=== PATIENT | female | born 1995 ===

== ENCOUNTER 2024-09-18 03:04 | Inpatient (IN) ==
[2024-09-18] MEDS ORDERED: LIDOCAINE 1% LOCAL 20 ML VIAL INFIL PRN (04:00)
[2024-09-18] MEDS ORDERED: OXYTOCIN 30 UNITS/NSS 30 UNITS/500 ML BAG IV PRN (04:00)
[2024-09-18] MEDS ORDERED: BUTORPHANOL TARTRATE 2 MG/ML VIAL IV PRN (04:06)
[2024-09-18 04:43] LABS: Creatinine Urine Random 84.1 mg/dl; Protein Creatinine Ratio Urine 0.6 (0-0.2); Total Protein Urine Random 47.8 mg/dl (0-11.9)
[2024-09-18] MEDS: SODIUM CHLORIDE 0.9% 1,000 ML IV SCH (04:45)
[2024-09-18 04:48] LABS: Hematocrit (blood only) 34.3 % (37.0-47.0); Hemoglobin 12.3 g/dl (12.0-16.0); Mean Corpuscular Hemoglobin 31.6 pg (25.0-34.0); Mean Corpuscular Hgb Conc 35.9 g/dL (32.0-36.0); Mean Corpuscular Volume 88.2 fL (80.0-100.0); Mean Platelet Volume 12.3 fL (9.4-12.4); Platelet Count 100 K/uL (130-400); RDW Coefficient of Variation 12.4 % (11.5-14.5); RDW Standard Deviation 39.7 fL (36.4-46.3); Red Blood Count 3.89 M/uL (4.20-5.40); White Blood Count 8.49 K/ul (4.8-10.8)
[2024-09-18 04:56] LABS: Albumin Globulin Ratio 1.5 (0.9-2); Albumin Level 3.8 gm/dl (3.4-5.0); Bilirubin,Total 0.4 mg/dl (0.2-1.0); Calcium 9.6 mg/dl (8.6-10.3); Creatinine Clr Calc Pharmacy 88.4 ml/min; Globulin 2.6 gm/dl (2.5-4.0); Potassium 3.8 mmol/L (3.5-5.1); Total Protein 6.4 gm/dl (6.0-8.3)
--- NOTE | 2024-09-18 05:46 | History & Physical Report ---
Date of Service September 18, 2024 Assessment & Plan (1) Post term over 40 weeks: (2) Preeclampsia: (3) PROM with onset of labor within 24 hours of rupture: Plan admit, iv, reviewed labs. plts noted. fhts currently categ 1. spontaneous labor pattern, may need to consider pitocin augmentation however for now cx changing despite at times irregular pattern. watch bps. if severe range will trt and plan mag. for now only plts low, cont to watch. Admission and Anticipated Discharge Date Admission Date: September 18, 2024 History of Present Illness Chief Complaint: leaking fluid, ctx. Primary Care Provider: VANESSA Alcantara 28yo at 40+wks ega presents to LD with cc of leaking fluid and contractions. Pt called early am on 09/18 noting ? pink fluid with some irregular ctx. Put pad on and recalled after one hour and told to come in for evaluation due to pad being 75% saturated. At that time also with irregular ctx. On arrival here notably grossly ruptured. Contractions q2-4 and cx exam 2cm. BPs elevated x 2. No matta or visual change. No ruq pain. No swelling. +FM. No vb. Clear fluid-- of note pt states first started leaking at 1900 on 09/17. PNC uncomplicated. PNL rh pos, ri, gbs neg OBH: g1 GYNH: nl paps no stds. Allergies Allergy/AdvReac Type Severity Reaction Status Date / Time No Known Allergies Allergy Verified 09/12/24 14:11 Home Medications Medication Instructions Recorded Confirmed Type pediatric multivitamin no.7-folic tab PO 04/27/24 09/12/24 History acid 100 mcg chewable tablet (Flintstones Multi-Vitamins Gummies) calcium carbonate PO 05/31/24 09/12/24 History Breast Pump #1 ea 06/28/24 09/12/24 Rx Patient History Medical History (Updated 09/18/24 @ 05:51 by Nelli Gale MD, FACOG) Human papilloma virus Varicella vaccination Surgical History Status post surgery S/P wisdom tooth extraction Family History Grandmother (Paternal) Breast cancer Grandfather (Maternal) Heart disease Myocardial infarction Grandfather (Paternal) Heart disease Denies family history of Ovarian cancer Prostate cancer Colorectal cancer Social History Smoking Status: Never smoker Second Hand Exposure: No; Do You Dip or Chew Tobacco: No; Hx Alcohol Use: No Hx Substance Use: No Preferred Language: Occitan Communication Ability: Effective Visual Impairment: No Limitations Hearing Ability: Normal Spa Manager Required: No Beliefs That Will Affect Care: None marital status: marital status details: Ray Maurice (27) [phone] Current Living Situation: Spouse Current Living Situation Comment: lives with spouse, cat-spouse changing litter current occupational status: employed 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 Other Information That Helps Us Care for You: No Feels Safe at Home: Yes Safety Concerns: Feels Safe At This Time Childhood Exposure to Second-Hand Smoke: Yes Dental Care, Regularly: Yes Physical Activity Frequency: Daily Seatbelt Use: always Sunscreen Use: Yes Assistive Devices: None Review of Systems as per Subjective / HPI Physical Exam Constitutional: WD/WN, vitals as above Respiratory: normal respiratory effort, lungs clear to auscultation Cardiovascular: Rate/Rhythm: regular rate and regular rhythm Gastrointestinal (Abdomen): soft gravid nt efw 7-8# Musculoskeletal: no edema Neurologic: DTRs +3, no sustained clonus Psychiatric: A+Ox3, euthymic affect Genitourinary: Manual OB Exam: + cervical dilation 4 cm, + cervical effacement 100% and + station -1 OB Exam Monitor Tracing: + external FHT monitor used, + scalp electrode used (applied, not tracing well), + external uterine monitor used (q2-6), + intra-uterine pressure catheter used (placed), + category I (+scalp stim, +spont accels. ), + normal FHT variability, + early decelerations present and + variable decelerations (previously on tracing, has not repeated. ) Results & Data Vital Signs (Past 12 Hours) Vital Signs Temp Pulse Resp BP 09/18/24 04:53 81 135/85 09/18/24 03:52 71 166/85 H 09/18/24 03:35 63 150/91 H 09/18/24 03:30 98.1 F 20 Coding Level of Care Code None Diagnoses Post term over 40 weeks O48.0 Preeclampsia O14.90 PROM with onset of labor within 24 hours of rupture O42.00
[2024-09-18] MEDS: LIDOCAINE 2%/EPINEPHRINE 1:200,000 20 ML PF ONE (06:14)
[2024-09-18] MEDS: SODIUM CHLORIDE 0.9% PF INJ 10 ML VIAL ONE (06:14)
[2024-09-18] MEDS: BUPIVACAINE 0.25% PF 30 ML VIAL ONE (06:14)
[2024-09-18] MEDS: fentANYL 2 MCG/ML BUPIVacaine 0.125%-NSS 100ML BAG ONE (06:14)
[2024-09-18] MEDS ORDERED: NALBUPHINE HCL INJ 10 MG/ML AMP IV PRN ×2 (06:24→17:02)
[2024-09-18] MEDS ORDERED: fentaNYL citrate PF 100 MCG/2 ML VIAL EPI PRN (06:24)
[2024-09-18] MEDS ORDERED: ROPIVACAINE 0.5% PF 5 MG/ML 20 ML VIAL EPI PRN (06:24)
[2024-09-18] MEDS ORDERED: BUPIVACAINE 0.25% PF 30 ML VIAL EPI PRN (06:24)
[2024-09-18] MEDS ORDERED: PROMETHAZINE 6.25 MG/50.25 ML BAG IV PRN (06:24)
[2024-09-18] MEDS ORDERED: ePHEDrine sulfate 50 MG/ML AMP IV PRN ×2 (06:24→17:02)
[2024-09-18] MEDS ORDERED: NALOXONE HCL 0.4 MG/1 ML VIAL/CARP IV PRN ×2 (06:24→17:02)
[2024-09-18] MEDS ORDERED: NALOXONE HCL 1 MG in SODIUM CHLORIDE 0.9% 1,000 ML IV PRN ×2 (06:24→17:02)
[2024-09-18] MEDS ORDERED: LIDOCAINE 2% MPF LOCAL 5 ML VIAL EPI PRN (06:24)
[2024-09-18] MEDS ORDERED: SODIUM CHLORIDE 0.9% PF INJ 10 ML VIAL EPI PRN (06:24)
--- NOTE | 2024-09-18 06:24 | Anesthesiology Consultation ---
Date of Service September 18, 2024 Assessment & Plan Chart Review Chart Review: Patient NOT seen in Pre Admission Testing and Acceptable Risk for Labor Epidural Consults Requested none ASA ASA2 Proposed Anesthesia Anesthesia Type: Labor Epidural Risk / Benefits Reviewed With: PT / POA / Parent / Guardian, Accepts Plan and Informed Consent Obtained History Height/Weight Height: 5 ft 1 in Weight: 68.629 kg Allergies Allergy/AdvReac Type Severity Reaction Status Date / Time No Known Allergies Allergy Verified 09/12/24 14:11 Medications Home Medications Medication Instructions Recorded Confirmed Last Taken pediatric multivitamin no.7-folic tab PO 04/27/24 09/12/24 09/17/24 acid 100 mcg chewable tablet (Flintstones Multi-Vitamins Gummies) calcium carbonate PO 05/31/24 09/12/24 09/17/24 Breast Pump #1 ea 06/28/24 09/12/24 Unknown Past Medical History Medical History (Updated 09/18/24 @ 05:51 by Nelli Gale MD, FACOG) Human papilloma virus Varicella vaccination Exercise / Class Metabolic Activity II 4-5 Yardwork/Stairs/Walk up hill Past Family History Family History Grandmother (Paternal) Breast cancer Grandfather (Maternal) Heart disease Myocardial infarction Grandfather (Paternal) Heart disease Denies family history of Ovarian cancer Prostate cancer Colorectal cancer Past Surgical History Surgical History Status post surgery S/P wisdom tooth extraction Past Anesthesia History No Hx of Anesthesia Complications and No Family Hx of Anesthesia Complications History of PONV No Hx of PONV and No Hx of Motion Sickness Social History Smoking Status: Never smoker Do You Dip or Chew Tobacco: No Hx Alcohol Use: No Hx Substance Use: No Physical Exam Vital Signs Last Vital Signs Temp 36.7 C 09/18/24 03:30 Pulse 73 09/18/24 06:20 Resp 20 09/18/24 03:30 BP 124/74 09/18/24 06:20 Pulse Ox 98 09/18/24 06:17 ENMT Mouth: no dentition abnormality Thyromental Distance: > or= 3.5 Finger Breadths Mallampati Class: II Neck normal visual inspection Respiratory normal respiratory effort Auscultation: lungs clear to auscultation bilaterally Cardiovascular Rate/Rhythm: regular rate and regular rhythm Psychiatric Orientation: alert Testing Laboratory Results 09/18/24 04:21 09/18/24 04:21
[2024-09-18] MEDS: fentaNYL citrate PF 100 MCG/2 ML VIAL ONE (06:33)
[2024-09-18] MEDS: ePHEDrine sulfate 50 MG/ML AMP ONE (06:33)
[2024-09-18] MEDS: BUPIVACAINE 0.25% PF 30 ML VIAL EPI STA (06:40)
[2024-09-18] MEDS: LIDOCAINE 2%/EPINEPHRINE 1:200,000 20 ML PF EPI STA (06:40)
[2024-09-18] MEDS: fentaNYL citrate PF 100 MCG/2 ML VIAL EPI STA (06:40)
[2024-09-18] MEDS: SODIUM CHLORIDE 0.9% PF INJ 10 ML VIAL EPI STA (06:40)
[2024-09-18] MEDS: CALCIUM CARBONATE 500 MG CHEWABLE TAB PO PRN (06:42)
--- NOTE | 2024-09-18 08:11 | Labor Progress Brief Note ---
Date of Service September 18, 2024 Subjective now comfortable. Assessment & Plan (1) Post term over 40 weeks: (2) Preeclampsia: (3) PROM with onset of labor within 24 hours of rupture: Plan some cx change. consider pitocin augmentation due to pattern. fhts categ 1. no further elevated bps. recheck labs 6hr from previous to see trend. cont current care. discussed use of magnesium with patient and rationale. Admission and Anticipated Discharge Date Admission Date: September 18, 2024 Physical Exam Constitutional: WD/WN, vitals as above Genitourinary: Manual OB Exam: + cervical dilation (5), + cervical effacement 100% and + station 0 OB Exam Monitor Tracing: + external FHT monitor used, + intra-uterine pressure catheter used (q2-4 mvu's inadequate), + category I (+scalp stim response. ) and + normal FHT variability Results & Data Vital Signs (Past 12 Hours) Vital Signs Temp Pulse Resp BP Pulse Ox 09/18/24 08:07 96 H 97 09/18/24 08:02 92 H 96 09/18/24 07:58 85 132/72 09/18/24 07:57 61 95 09/18/24 07:52 66 96 09/18/24 07:47 77 98 09/18/24 07:43 78 112/55 L 09/18/24 07:42 107 H 97 09/18/24 07:37 116 H 98 09/18/24 07:32 96 H 97 09/18/24 07:27 77 97 09/18/24 07:22 69 97 09/18/24 07:17 77 97 09/18/24 07:14 97.9 F 18 09/18/24 07:13 98 H 131/65 09/18/24 07:12 84 97 09/18/24 07:07 89 97 09/18/24 07:02 85 97 09/18/24 06:59 65 125/71 09/18/24 06:57 70 97 09/18/24 06:52 65 97 09/18/24 06:47 81 98 09/18/24 06:43 76 132/82 09/18/24 06:42 76 97 09/18/24 06:37 68 99 09/18/24 06:36 83 127/78 09/18/24 06:32 66 128/71 97 09/18/24 06:27 70 128/66 98 09/18/24 06:22 78 97 09/18/24 06:20 73 124/74 09/18/24 06:18 95 H 118/65 09/18/24 06:17 93 H 98 09/18/24 06:16 85 118/66 09/18/24 06:14 72 136/69 09/18/24 06:12 90 130/68 99 09/18/24 06:07 86 98 09/18/24 06:02 88 100 09/18/24 04:53 81 135/85 09/18/24 03:52 71 166/85 H 09/18/24 03:35 63 150/91 H 09/18/24 03:30 98.1 F 20 Coding Level of Care Code None Diagnoses Post term over 40 weeks O48.0 Preeclampsia O14.90 PROM with onset of labor within 24 hours of rupture O42.00
[2024-09-18] MEDS: OXYTOCIN 30 UNITS/NSS 30 UNITS/500 ML BAG IV PRN (09:18)
[2024-09-18 09:58] LABS: Hematocrit (blood only) 32.7 % (37.0-47.0); Hemoglobin 11.6 g/dl (12.0-16.0); Mean Corpuscular Hemoglobin 31.7 pg (25.0-34.0); Mean Corpuscular Hgb Conc 35.5 g/dL (32.0-36.0); Mean Corpuscular Volume 89.3 fL (80.0-100.0); Mean Platelet Volume 12.6 fL (9.4-12.4); Platelet Count 100 K/uL (130-400); RDW Coefficient of Variation 12.6 % (11.5-14.5); RDW Standard Deviation 40.7 fL (36.4-46.3); Red Blood Count 3.66 M/uL (4.20-5.40)
[2024-09-18 10:08] LABS: Albumin Globulin Ratio 1.3 (0.9-2); Albumin Level 3.5 gm/dl (3.4-5.0); BUN Creatinine Ratio 18.6 (10-20); Bilirubin,Total 0.3 mg/dl (0.2-1.0); Calcium 9.5 mg/dl (8.6-10.3); Creatinine Clr Calc Pharmacy 86.3 ml/min; Globulin 2.7 gm/dl (2.5-4.0); Potassium 4.4 mmol/L (3.5-5.1); Total Protein 6.2 gm/dl (6.0-8.3)
[2024-09-18] MEDS ORDERED: Nursing to Pharmacy Communication SCH (12:30)
[2024-09-18] MEDS: fentANYL 2 MCG/ML BUPIVacaine 0.125%-NSS 100ML BAG EPI PRN (12:31)
[2024-09-18] MEDS: diphenhydrAMINE 50 MG/ML VIAL IV PRN (14:33)
[2024-09-18 16:37] LABS: Hematocrit (blood only) 33.9 % (37.0-47.0); Mean Corpuscular Hemoglobin 31.8 pg (25.0-34.0); Mean Corpuscular Hgb Conc 35.4 g/dL (32.0-36.0); Mean Corpuscular Volume 89.9 fL (80.0-100.0); Mean Platelet Volume 12.2 fL (9.4-12.4); Platelet Count 88 K/uL (130-400); RDW Coefficient of Variation 12.5 % (11.5-14.5); RDW Standard Deviation 41.2 fL (36.4-46.3); Red Blood Count 3.77 M/uL (4.20-5.40); White Blood Count 11.29 K/ul (4.8-10.8)
[2024-09-18] MEDS: ONDANSETRON INJ 2 MG/ML 2 ML VIAL IV PRN (16:41)
[2024-09-18 16:43] LABS: Partial Thromboplastin Time 26 Seconds (21-31); Prothrombin Time 10.4 Seconds (9.0-12.0)
[2024-09-18] MEDS ORDERED: SODIUM CHLORIDE 0.9% 1,000 ML IV SCH ×3 (17:00→18:15)
[2024-09-18] MEDS ORDERED: DEXAMETHASONE SOD INJ 4 MG/ML VIAL ONE (17:01)
[2024-09-18] MEDS ORDERED: PHENYLEPHRINE HCL 25 MG/250 ML NSS IV ONE (17:01)
[2024-09-18] MEDS ORDERED: ONDANSETRON INJ 2 MG/ML 2 ML VIAL ONE (17:01)
[2024-09-18] MEDS ORDERED: MoRPHine SULFATE 2 MG/ML CARP IV PRN (17:02)
[2024-09-18] MEDS ORDERED: LIDOCAINE 2%/EPINEPHRINE 1:200,000 20 ML PF ONE (17:02)
[2024-09-18] MEDS ORDERED: MoRPHine SULFATE PF 1 MG/ML 10 ML AMP/VIAL EPI ONE (17:02)
[2024-09-18] MEDS ORDERED: ONDANSETRON INJ 2 MG/ML 2 ML VIAL IV PRN (17:02)
[2024-09-18] MEDS ORDERED: NALOXONE HCL 0.08 MG in SYRINGE 1.8 ML IV PRN (17:02)
[2024-09-18] MEDS ORDERED: diphenhydrAMINE 50 MG/ML VIAL IV PRN (17:02)
[2024-09-18] MEDS ORDERED: HYDROmorphone INJ 0.5 MG/0.5 ML SYR IV PRN ×2 (17:02→18:12)
[2024-09-18] MEDS: CITRIC ACID/SODIUM CITRATE 15 ML UDC PO SCH (17:06)
[2024-09-18] MEDS: AZITHROMYCIN 250 MG TAB PO SCH (17:07)
--- NOTE | 2024-09-18 17:08 | Labor Progress Brief Note ---
Date of Service September 18, 2024 Assessment & Plan (1) Preeclampsia: Plan: 28yo admitted with PROM followed by Labor with augmentation, and atypical preeclampsia with BP that is mostly normal and Cr/AST/ALT that are normal but platelets which have dropped from 100->88. Patient has made progress but it has been slow and is accompanied by cervical swelling, labial swelling, and persistent deep hip pain. Patient and FOB were counseled on the cervical change so far and the reassuring FHT at present, but also on the signs of CPD which are present and the reality that her platelets are trending down. Her platelets are heading towards (but not yet at) a level where she will require platelet transfusion to safely undergo surgery, and she is at increased risk of bleeding during delivery by any route. Patient and FOB were made aware they may reasonably elect either continued labor or a , with risks and benefits to both. Monique is requesting we move to now for the best chance of a safe delivery, and I agree with this. I have added fibrinogen to the coag panel just done by anesthesia. Platelets are a diagnostic marker of severe preeclampsia but Monique has normal BP and no SKELTON or signs of neurologic irritability at this time. Since magnesium can increase risk of hemorrhage further, I will plan to start magnesium after she is safely through surgery and bleeding has been assessed to be acceptable, as hemorrhage risk outweighs sei zure risk at this time in my opinion. (2) PROM with onset of labor within 24 hours of rupture: Admission and Anticipated Discharge Date Admission Date: September 18, 2024 Physical Exam Genitourinary: 890/0 FHT Cat 1 [place] Q2-3 Results & Data Vital Signs (Past 12 Hours) Vital Signs Temp Pulse Resp BP Pulse Ox 09/18/24 16:59 115 H 125/79 09/18/24 16:57 131 H 98 09/18/24 16:52 114 H 99 09/18/24 16:47 108 H 98 09/18/24 16:44 148 H 123/77 09/18/24 16:42 148 H 98 09/18/24 16:37 158 H 100 09/18/24 16:32 131 H 100 09/18/24 16:29 137 H 131/81 09/18/24 16:27 116 H 100 09/18/24 16:22 143 H 99 09/18/24 16:17 150 H 98 09/18/24 16:12 109 H 99 09/18/24 16:07 101 H 99 09/18/24 16:02 103 H 98 09/18/24 15:58 81 122/67 94 09/18/24 15:57 83 95 09/18/24 15:52 79 96 09/18/24 15:47 100 H 96 09/18/24 15:43 81 132/73 09/18/24 15:42 81 96 09/18/24 15:37 82 97 09/18/24 15:32 90 97 09/18/24 15:28 81 125/66 09/18/24 15:27 85 97 09/18/24 15:22 78 96 09/18/24 15:17 90 97 09/18/24 15:15 18 09/18/24 15:15 99.3 F 18 09/18/24 15:14 137 H 126/65 09/18/24 15:12 104 H 98 09/18/24 15:07 92 H 98 09/18/24 15:02 93 H 97 09/18/24 14:58 85 148/85 H 09/18/24 14:57 84 97 09/18/24 14:52 80 97 09/18/24 14:47 86 98 09/18/24 14:43 86 134/85 09/18/24 14:42 82 96 09/18/24 14:37 95 H 99 09/18/24 14:32 95 H 99 09/18/24 14:28 86 143/90 H 09/18/24 14:27 92 H 99 09/18/24 14:22 109 H 98 09/18/24 14:17 97 H 99 09/18/24 14:15 96 H 147/88 H 09/18/24 14:12 123 H 96 09/18/24 14:07 133 H 97 09/18/24 14:02 120 H 98 09/18/24 13:59 93 H 131/89 09/18/24 13:57 103 H 98 09/18/24 13:52 107 H 97 09/18/24 13:47 83 97 09/18/24 13:44 72 125/68 09/18/24 13:42 74 97 09/18/24 13:37 88 96 09/18/24 13:32 76 97 09/18/24 13:28 82 112/65 09/18/24 13:27 83 97 09/18/24 13:22 91 H 99 09/18/24 13:17 111 H 98 09/18/24 13:13 81 134/75 09/18/24 13:12 76 99 09/18/24 13:07 82 98 09/18/24 13:02 77 98 09/18/24 12:58 83 128/68 09/18/24 12:57 86 97 09/18/24 12:52 91 H 97 09/18/24 12:47 88 96 09/18/24 12:44 76 135/82 09/18/24 12:42 77 100 09/18/24 12:37 86 98 09/18/24 12:32 84 97 09/18/24 12:29 78 127/65 09/18/24 12:27 92 H 96 09/18/24 12:22 88 97 09/18/24 12:17 83 97 09/18/24 12:13 112 H 114/67 09/18/24 12:12 101 H 97 09/18/24 12:07 78 97 09/18/24 12:02 73 96 09/18/24 11:57 80 97 09/18/24 11:52 79 99 09/18/24 11:47 77 96 09/18/24 11:43 75 147/84 H 09/18/24 11:42 74 97 09/18/24 11:37 70 97 09/18/24 11:34 98 H 92 09/18/24 11:32 107 H 97 09/18/24 11:28 73 118/70 09/18/24 11:27 76 97 09/18/24 11:22 80 97 09/18/24 11:17 75 97 09/18/24 11:14 69 125/74 09/18/24 11:12 75 96 09/18/24 11:07 77 98 09/18/24 11:02 68 97 09/18/24 10:58 67 119/68 09/18/24 10:57 69 97 09/18/24 10:52 77 97 09/18/24 10:47 89 97 09/18/24 10:43 83 119/64 09/18/24 10:42 79 96 09/18/24 10:37 70 97 09/18/24 10:32 83 97 09/18/24 10:28 84 120/58 L 09/18/24 10:27 86 97 09/18/24 10:22 78 97 09/18/24 10:17 98 H 97 09/18/24 10:16 18 09/18/24 10:16 98.1 F 18 09/18/24 10:14 80 131/64 09/18/24 10:12 80 98 09/18/24 10:07 86 97 09/18/24 10:02 84 96 09/18/24 09:58 82 135/85 09/18/24 09:57 84 98 09/18/24 09:52 82 97 09/18/24 09:47 77 98 09/18/24 09:43 66 134/73 09/18/24 09:42 73 97 09/18/24 09:37 73 97 09/18/24 09:32 68 97 09/18/24 09:28 71 134/81 09/18/24 09:27 72 97 09/18/24 09:22 81 98 09/18/24 09:17 87 97 09/18/24 09:13 92 H 128/85 09/18/24 09:12 74 98 09/18/24 09:07 106 H 97 09/18/24 09:02 78 96 09/18/24 08:58 79 129/81 24 08:57 72 97 09/18/24 08:52 70 96 09/18/24 08:47 69 98 09/18/24 08:43 121 H 109/62 24 08:42 120 H 99 09/18/24 08:37 83 97 24 08:32 112 H 98 09/18/24 08:28 114 H 117/67 24 08:27 108 H 97 24 08:22 73 97 24 08:17 70 96 24 08:14 68 126/76 24 08:12 74 97 24 08:07 96 H 97 09/18/24 08:02 92 H 96 24 07:58 85 132/72 24 07:57 61 95 24 07:52 66 96 09/18/24 07:47 77 98 09/18/24 07:43 78 112/55 L 09/18/24 07:42 107 H 97 09/18/24 07:37 116 H 98 09/18/24 07:32 96 H 97 09/18/24 07:27 77 97 09/18/24 07:22 69 97 09/18/24 07:17 77 97 09/18/24 07:14 97.9 F 18 09/18/24 07:13 98 H 131/65 09/18/24 07:12 84 97 09/18/24 07:07 89 97 09/18/24 07:02 85 97 09/18/24 06:59 65 125/71 09/18/24 06:57 70 97 09/18/24 06:52 65 97 09/18/24 06:47 81 98 09/18/24 06:43 76 132/82 09/18/24 06:42 76 97 09/18/24 06:37 68 99 09/18/24 06:36 83 127/78 09/18/24 06:32 66 128/71 97 09/18/24 06:27 70 128/66 98 09/18/24 06:22 78 97 09/18/24 06:20 73 124/74 09/18/24 06:18 95 H 118/65 09/18/24 06:17 93 H 98 09/18/24 06:16 85 118/66 09/18/24 06:14 72 136/69 09/18/24 06:12 90 130/68 99 09/18/24 06:07 86 98 09/18/24 06:02 88 100 Coding Level of Care Code None Diagnoses Preeclampsia O14.90 PROM with onset of labor within 24 hours of rupture O42.00
[2024-09-18] MEDS: ACETAMINOPHEN 500 MG TAB PO SCH (17:09)
[2024-09-18] MEDS ORDERED: MoRPHine SULFATE PF 1 MG/ML 10 ML AMP/VIAL ONE (17:13)
[2024-09-18] MEDS ORDERED: NO NARCOTICS OR SEDATIVES SCH (17:15)
[2024-09-18] MEDS ORDERED: DC INTRASPINAL MORPHINE SCH (17:15)
[2024-09-18] MEDS ORDERED: fentaNYL citrate PF 100 MCG/2 ML VIAL ONE (17:15)
[2024-09-18] MEDS: ceFAZolin 2000MG 2,000 MG/15 ML SYR IV SCH (17:15)
[2024-09-18 17:24] LABS: Fibrinogen 354 mg/dl (184-400)
[2024-09-18] MEDS ORDERED: OXYTOCIN 10 UNITS/ML VIAL ONE (17:35)
[2024-09-18] MEDS ORDERED: BENZOCAINE 20% SPRY 85 APPLN/85 GM CAN EXT PRN (18:12)
[2024-09-18] MEDS ORDERED: CALCIUM CARBONATE 500 MG CHEWABLE TAB PO PRN (18:12)
[2024-09-18] MEDS ORDERED: HYDROCORTISONE ACETATE 25 MG SUPP PR PRN (18:12)
[2024-09-18] MEDS ORDERED: MAGNESIUM HYDROXIDE SUSP 30 ML UDC PO PRN (18:12)
[2024-09-18] MEDS ORDERED: SENNA 8.6 MG TAB PO PRN (18:12)
--- NOTE | 2024-09-18 18:21 | Operative Report ---
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 She was prepped and draped in standard sterile fashion. The anesthetic was tested and found to be adequate. A time-out was held, identifying correct patient, procedure, positioning and preoperative antibiotics. There were no concerns. A Pfannenstiel skin incision was made with a knife and taken down to the underlying layer of fascia. The fascia was incised in the midline with the knife and taken out laterally with scissors. The superior edge of the fascial incision was grasped, elevated and dissected off the underlying rectus both superiorly and inferiorly. The muscles were bluntly in the midline. The peritoneum was entered bluntly. The incision was then stretched. The bladder retractor was placed. The vesicouterine peritoneum was identified, entered with scissors and taken out laterally with scissors. The bladder flap was created digitally. A hysterotomy incision was created transversely in the lower uterine segment, final entry being accomplished in a blunt manner with the purifying plant operator's fingers. Clear amniotic fluid was encountered. The purifying plant operator's hand was used to elevate the head to the hysterotomy. The head was delivered using mild fundal pressure, and the shoulders and body followed without difficulty. The cord was clamped and cut and the infant was then handed off to the awaiting demand planner. Cord blood was obtained. The placenta was Manually extracted. The uterus was exteriorized and cleared of all clot and debris with moistened laparotomy sponges. The hysterotomy incision was repaired in two layers, the first in a running locked layer, the second in an imbricating layer. The ovaries and tubes were seen to be normal bilaterally. The uterus was gently replaced in the abdomen, and the gutters were cleared of clot and debris. A figure of eight stitch was applied to control an area of oozing at the hysterotomy. A final inspection of the hysterotomy revealed good hemostasis. The rectus muscles were allowed to reapproximate naturally. The fascia was then reapproximated with 1 Vicryl in a running nonlocked manner. The fascia was examined and found to be free of defect following closure. The subcutaneous tissue was copiously irrigated and reapproximated with 0-chromic, then the skin edges were closed with 4-0 monocryl in a subcuticular fashion. A dermabond dressing was applied. The yuen was found to be draining clear yellow urine at completion of the procedure. I attest to the content of the Intraoperative Record and any orders documented therein. Any exceptions are noted below. I attest to the content of the Intraoperative Record and any orders documented therein. Any exceptions are noted below. OB Procedure Charges 45566
[2024-09-18] MEDS ORDERED: KETOROLAC 30 MG/ML VIAL ONE (18:25)
--- NOTE | 2024-09-18 18:30 | Anesthesiology Progress Note ---
Date of Service September 18, 2024 Anesthesia Post Procedure Vital Signs Vital Signs: Temp Pulse Resp BP Pulse Ox 09/18/24 18:26 128 H 99 09/18/24 18:22 129 H 117/57 L 09/18/24 18:21 125 H 98 09/18/24 18:16 123 H 98 09/18/24 18:13 122 H 116/59 L 09/18/24 18:11 127 H 98 09/18/24 17:13 104 H 134/77 09/18/24 17:12 122 H 99 09/18/24 17:07 118 H 99 09/18/24 17:02 132 H 98 09/18/24 16:59 115 H 125/79 09/18/24 16:57 131 H 98 09/18/24 16:52 114 H 99 09/18/24 16:47 108 H 98 09/18/24 16:44 148 H 123/77 09/18/24 16:42 148 H 98 09/18/24 16:37 158 H 100 09/18/24 16:32 131 H 100 09/18/24 16:29 137 H 131/81 09/18/24 16:27 116 H 100 09/18/24 16:22 143 H 99 09/18/24 16:17 150 H 98 09/18/24 16:12 109 H 99 09/18/24 16:07 101 H 99 09/18/24 16:02 103 H 98 09/18/24 15:58 81 122/67 94 09/18/24 15:57 83 95 09/18/24 15:52 79 96 09/18/24 15:47 100 H 96 09/18/24 15:43 81 132/73 09/18/24 15:42 81 96 09/18/24 15:37 82 97 09/18/24 15:32 90 97 09/18/24 15:28 81 125/66 09/18/24 15:27 85 97 09/18/24 15:22 78 96 09/18/24 15:17 90 97 09/18/24 15:15 18 09/18/24 15:15 37.4 C 18 09/18/24 15:14 137 H 126/65 09/18/24 15:12 104 H 98 09/18/24 15:07 92 H 98 09/18/24 15:02 93 H 97 09/18/24 14:58 85 148/85 H 09/18/24 14:57 84 97 09/18/24 14:52 80 97 09/18/24 14:47 86 98 09/18/24 14:43 86 134/85 09/18/24 14:42 82 96 09/18/24 14:37 95 H 99 09/18/24 14:32 95 H 99 09/18/24 14:28 86 143/90 H 09/18/24 14:27 92 H 99 09/18/24 14:22 109 H 98 09/18/24 14:17 97 H 99 09/18/24 14:15 96 H 147/88 H 09/18/24 14:12 123 H 96 09/18/24 14:07 133 H 97 09/18/24 14:02 120 H 98 09/18/24 13:59 93 H 131/89 09/18/24 13:57 103 H 98 09/18/24 13:52 107 H 97 09/18/24 13:47 83 97 09/18/24 13:44 72 125/68 09/18/24 13:42 74 97 09/18/24 13:37 88 96 09/18/24 13:32 76 97 09/18/24 13:28 82 112/65 09/18/24 13:27 83 97 09/18/24 13:22 91 H 99 09/18/24 13:17 111 H 98 09/18/24 13:13 81 134/75 09/18/24 13:12 76 99 09/18/24 13:07 82 98 09/18/24 13:02 77 98 09/18/24 12:58 83 128/68 09/18/24 12:57 86 97 09/18/24 12:52 91 H 97 09/18/24 12:47 88 96 09/18/24 12:44 76 135/82 09/18/24 12:42 77 100 09/18/24 12:37 86 98 09/18/24 12:32 84 97 09/18/24 12:29 78 127/65 09/18/24 12:27 92 H 96 09/18/24 12:22 88 97 09/18/24 12:17 83 97 09/18/24 12:13 112 H 114/67 09/18/24 12:12 101 H 97 09/18/24 12:07 78 97 09/18/24 12:02 73 96 09/18/24 11:57 80 97 09/18/24 11:52 79 99 09/18/24 11:47 77 96 09/18/24 11:43 75 147/84 H 09/18/24 11:42 74 97 09/18/24 11:37 70 97 09/18/24 11:34 98 H 92 09/18/24 11:32 107 H 97 09/18/24 11:28 73 118/70 09/18/24 11:27 76 97 09/18/24 11:22 80 97 09/18/24 11:17 75 97 09/18/24 11:14 69 125/74 09/18/24 11:12 75 96 09/18/24 11:07 77 98 09/18/24 11:02 68 97 09/18/24 10:58 67 119/68 09/18/24 10:57 69 97 09/18/24 10:52 77 97 09/18/24 10:47 89 97 09/18/24 10:43 83 119/64 09/18/24 10:42 79 96 09/18/24 10:37 70 97 09/18/24 10:32 83 97 09/18/24 10:28 84 120/58 L 09/18/24 10:27 86 97 09/18/24 10:22 78 97 09/18/24 10:17 98 H 97 09/18/24 10:16 18 09/18/24 10:16 36.7 C 18 09/18/24 10:14 80 131/64 09/18/24 10:12 80 98 09/18/24 10:07 86 97 09/18/24 10:02 84 96 09/18/24 09:58 82 135/85 09/18/24 09:57 84 98 09/18/24 09:52 82 97 09/18/24 09:47 77 98 24 09:43 66 134/73 24 09:42 73 97 09/18/24 09:37 73 97 09/18/24 09:32 68 97 09/18/24 09:28 71 134/81 09/18/24 09:27 72 97 12/24/24 09:22 81 98 24 09:17 87 97 24 09:13 92 H 128/85 24 09:12 74 98 24 09:07 106 H 97 24 09:02 78 96 24 08:58 79 129/81 24 08:57 72 97 24 08:52 70 96 24 08:47 69 98 24 08:43 121 H 109/62 24 08:42 120 H 99 24 08:37 83 97 24 08:32 112 H 98 24 08:28 114 H 117/67 24 08:27 108 H 97 24 08:22 73 97 24 08:17 70 96 24 08:14 68 126/76 09/18/24 08:12 74 97 09/18/24 08:07 96 H 97 09/18/24 08:02 92 H 96 24 07:58 85 132/72 24 07:57 61 95 24 07:52 66 96 24 07:47 77 98 24 07:43 78 112/55 L 09/18/24 07:42 107 H 97 24 07:37 116 H 98 24 07:32 96 H 97 24 07:27 77 97 24 07:22 69 97 24 07:17 77 97 24 07:14 36.6 C 18 24 07:13 98 H 131/65 09/18/24 07:12 84 97 09/18/24 07:07 89 97 09/18/24 07:02 85 97 24/24 06:59 65 125/71 09/18/24 06:57 70 97 09/18/24 06:52 65 97 09/18/24 06:47 81 98 24 06:43 76 132/82 09/18/24 06:42 76 97 24 06:37 68 99 24 06:36 83 127/78 12/24/24 06:32 66 128/71 97 09/18/24 06:27 70 128/66 98 09/18/24 06:22 78 97 09/18/24 06:20 73 124/74 09/18/24 06:18 95 H 118/65 09/18/24 06:17 93 H 98 09/18/24 06:16 85 118/66 09/18/24 06:14 72 136/69 09/18/24 06:12 90 130/68 99 09/18/24 06:07 86 98 09/18/24 06:02 88 100 09/18/24 04:53 81 135/85 09/18/24 03:52 71 166/85 H 09/18/24 03:35 63 150/91 H 09/18/24 03:30 36.7 C 20 Pain Intensity Bilateral Lower Abdomen: Pain Intensity: 2 Transfer of Care Handoff Completed per policy Notes Mental Status: alert / awake / arousable and participated in evaluation Patient Amnestic to Procedure: Yes Nausea / Vomiting: adequately controlled Pain: adequately controlled Airway Patency, RR, SpO2: stable & adequate BP & HR: stable & adequate Hydration State: stable & adequate Anesthetic Complications: no major complications apparent and Pt Satisfied with anesthetic care
[2024-09-18] MEDS: KETOROLAC 30 MG/ML VIAL IV SCH (18:39)
[2024-09-18] MEDS: OXYTOCIN 20 UNITS/LR 1,002 ML IV SCH (19:12)
--- NOTE | 2024-09-18 19:25 | Communication Note ---
Date of Service: September 18, 2024 Discussed with RN: BP 108/65 and pulse 112. Given her BP and pulse post-op, I do not feel that we should start magnesium as previously planned. Will add stat H&H, though intraop losses were not especially high and post-op lochia is light so far.
[2024-09-18 19:48] LABS: Hematocrit (blood only) 27.8 % (37.0-47.0); Hemoglobin 9.7 g/dl (12.0-16.0)
[2024-09-18] MEDS ORDERED: SODIUM CHLORIDE 0.9% 100 ML IV PRN (19:54)
[2024-09-18] MEDS ORDERED: SODIUM CHLORIDE 0.9% 50 ML IV PRN (19:54)
[2024-09-18] MEDS: DOCUSATE SODIUM 100 MG CAP PO SCH (21:06)
[2024-09-18] MEDS: SIMETHICONE 80 MG CHEW PO SCH (21:06)
[2024-09-19] MEDS: ACETAMINOPHEN 325 MG TAB PO SCH (00:45)
[2024-09-19] MEDS ORDERED: AZITHROMYCIN 500 MG in SODIUM CHLORIDE 0.9% 250 ML IV SCH (06:00)
[2024-09-19] MEDS ORDERED: CITRIC ACID/SODIUM CITRATE 15 ML UDC PO SCH (06:00)
[2024-09-19 07:12] LABS: Basophils # (auto) 0.02 K/uL (0.00-0.20); Basophils % (auto) 0.1 %; Hematocrit (blood only) 24.4 % (37.0-47.0); Hemoglobin 8.7 g/dl (12.0-16.0); Immature Granulocytes # (auto) 0.09 K/uL (0.01-0.20); Immature Granulocytes % (auto) 0.5 %; Lymphocytes # (auto) 1.06 K/uL (1.20-3.40); Mean Corpuscular Hemoglobin 32.2 pg (25.0-34.0); Mean Corpuscular Hgb Conc 35.7 g/dL (32.0-36.0); Mean Corpuscular Volume 90.4 fL (80.0-100.0); Mean Platelet Volume 12.7 fL (9.4-12.4); Monocytes # (auto) 1.17 K/uL (0.11-0.59); Monocytes % (auto) 6.7 %; Neutrophils # (auto) 15.21 K/uL (1.40-6.50); Neutrophils % (auto) 86.7 %; Platelet Count 83 K/uL (130-400); RDW Coefficient of Variation 12.6 % (11.5-14.5); RDW Standard Deviation 40.9 fL (36.4-46.3); White Blood Count 17.55 K/ul (4.8-10.8)
[2024-09-19 07:23] LABS: Albumin Globulin Ratio 1.3 (0.9-2); Albumin Level 2.7 gm/dl (3.4-5.0); BUN Creatinine Ratio 17.1 (10-20); Bilirubin,Total 0.4 mg/dl (0.2-1.0); Calcium 7.7 mg/dl (8.6-10.3); Globulin 2.1 gm/dl (2.5-4.0); Potassium 5.6 mmol/L (3.5-5.1); Total Protein 4.8 gm/dl (6.0-8.3)
[2024-09-19 07:24] LABS: INR 1.1 (0.9-1.1); Partial Thromboplastin Ratio 1.1; Partial Thromboplastin Time 29 Seconds (21-31); Prothrombin Time 11.5 Seconds (9.0-12.0)
[2024-09-19 07:37] LABS: Fibrinogen 325 mg/dl (184-400)
[2024-09-19] MEDS: FERROUS SULFATE 325 MG TAB PO SCH (07:41)
--- NOTE | 2024-09-19 07:47 | Obstetrical Progress Note ---
Date of Service September 19, 2024 Assessment & Plan (1) Post term over 40 weeks: Patient is POD#1 from a primary low transverse section. Surgically she is recovering well, incision clean, lochia small, and successfully. 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 Her Hgb drop is c/w her surgical losses and her lochia has been small/appropriate during recovery. Magnesium was never administered, as she normalized her blood pressure immediately (currently 111/73) and has never had signs or symptoms of neuro-irritability, nor has she had any abnormalities in LFT's or coags. Her platelets are hopefully stabilizing but another serial check is set for this afternoon, then tomorrow morning. Of note, this AM her creatinine spiked to 1.4, evidencing some BRITTNEY. She had a brief period of inadequate urine output yesterday during labor, but has been making better output since then, is now fluid-negative for the last several hours, and is taking PO hydration at this point. To aid renal recovery, run IV fluid at 75cc/hr (she is petite and we don't want overload) while she continues taking PO as she likes, and we will recheck Cr this afternoon and tomorrow. Close observation continues and magnesium could be added at any time if the picture changes. (2) Preeclampsia: (3) state: Subjective Ambulation: limited ambulation Voiding: no voiding problems (Jackson just out, not attempted to void yet) Passing Gas:: Yes Diet Tolerance:: regular diet Lochia:: Small Feeding Type:: breast feeding (actively lateched and begun feeding during our visit) Physical Exam Constitutional WD/WN, vitals as above Eyes PERRL, conjunctivae normal, anicteric sclerae Neck normal visual inspection Respiratory normal respiratory effort and able to speak in complete sentences; no respiratory distress and no labored breathing Cardiovascular Rate/Rhythm: regular rate and regular rhythm Extremities: no edema Chest (Breasts) Chest: normal inspection of chest Gastrointestinal (Abdomen) Inspection/Auscultation: abdomen normal to inspection Soft, postgravid, incision c/d/i with glue Musculoskeletal No edema, SCDs Psychiatric A+Ox3, euthymic affect Genitourinary OB Exam Abdomen: + fundal height Fundus: + firm and + relation to umbilicus (fundus just below umbilicus); not tender Results & Data Vital Signs (Past 12 Hours) Vital Signs Temp Pulse Pulse Resp BP BP Pulse Ox 09/19/24 06:00 97.9 F 90 16 111/73 98 09/19/24 04:00 16 97 09/19/24 03:00 18 98 09/19/24 02:00 16 98 09/19/24 01:00 18 96 09/19/24 00:45 98.2 F 78 16 119/79 97 09/19/24 00:00 16 97 09/18/24 23:00 16 97 09/18/24 22:00 16 97 09/18/24 21:00 98.6 F 86 18 122/74 97 09/18/24 21:00 16 97 09/18/24 21:00 09/18/24 20:22 100 H 122/74 09/18/24 20:21 101 H 96 09/18/24 20:16 96 H 96 09/18/24 20:13 85 116/60 09/18/24 20:11 95 H 95 09/18/24 20:10 98.6 F 18 09/18/24 20:06 109 H 96 09/18/24 20:03 109 H 115/58 L 09/18/24 20:01 101 H 95 09/18/24 19:56 115 H 96 09/18/24 19:53 113 H 113/60 09/18/24 19:51 94 H 95 09/18/24 19:46 109 H 96 09/18/24 19:41 118 H 95 09/18/24 19:40 98.2 F 18 O2 Del Method 09/19/24 06:00 Room Air 09/19/24 04:00 09/19/24 03:00 09/19/24 02:00 09/19/24 01:00 09/19/24 00:45 Room Air 09/19/24 00:00 09/18/24 23:00 09/18/24 22:00 09/18/24 21:00 Room Air 09/18/24 21:00 09/18/24 21:00 Room Air 09/18/24 20:22 09/18/24 20:21 09/18/24 20:16 09/18/24 20:13 09/18/24 20:11 09/18/24 20:10 09/18/24 20:06 09/18/24 20:03 09/18/24 20:01 09/18/24 19:56 09/18/24 19:53 09/18/24 19:51 09/18/24 19:46 09/18/24 19:41 09/18/24 19:40
--- NOTE | 2024-09-19 07:47 | Anesthesia Procedure Note ---
Date of Service September 19, 2024 Anesthesia Post Epidural Note Vital Signs Vital Signs: Temp Pulse Resp BP Pulse Ox O2 Del Method 36.6 C 90 16 111/73 98 Room Air 09/19/24 06:00 09/19/24 06:00 09/19/24 06:00 09/19/24 06:00 09/19/24 06:00 09/19/24 06:00 Pain Intensity Bilateral Lower Abdomen: Pain Intensity: 2 Notes Mental Status: alert / awake / arousable and participated in evaluation Nausea / Vomiting: adequately controlled Pain: adequately controlled Airway Patency, RR, SpO2: stable & adequate BP & HR: stable & adequate Hydration State: stable & adequate Neuraxial Anesthesia: was administered and sensory block resolved Anesthetic Complications: no major complications apparent and Pt Satisfied with anesthetic care Epidural: Removed without complications and With tip intact Notes: pt platelets were 83 this am. i removed epidural but it had already worked out all but ~ 1 cm of catheter over night
[2024-09-19] MEDS: SODIUM CHLORIDE 0.9% 1,000 ML IV SCH (11:00)
[2024-09-19] MEDS ORDERED: ONDANSETRON INJ 2 MG/ML 2 ML VIAL IV PRN (11:03)
[2024-09-19] MEDS ORDERED: diphenhydrAMINE Capsule 25 MG CAP PO PRN (11:03)
[2024-09-19] MEDS ORDERED: diphenhydrAMINE 50 MG/ML VIAL IV PRN (11:03)
[2024-09-19] MEDS ORDERED: oxyCODONE HCL IR 5 MG TAB (IMMEDIATE RELEASE) PO PRN (11:03)
[2024-09-19] MEDS ORDERED: PROMETHAZINE 12.5 MG/50.5 ML BAG IV PRN (11:03)
[2024-09-19] MEDS: PRENATAL VITAMIN 1 TAB PO SCH (14:59)
[2024-09-19] MEDS: KETOROLAC 30 MG/ML VIAL ONE (15:26)
[2024-09-19 16:16] LABS: Hematocrit (blood only) 23.4 % (37.0-47.0); Mean Corpuscular Hemoglobin 31.1 pg (25.0-34.0); Mean Corpuscular Hgb Conc 34.2 g/dL (32.0-36.0); Mean Corpuscular Volume 91.1 fL (80.0-100.0); Mean Platelet Volume 12.3 fL (9.4-12.4); Platelet Count 80 K/uL (130-400); RDW Coefficient of Variation 12.8 % (11.5-14.5); RDW Standard Deviation 41.8 fL (36.4-46.3); Red Blood Count 2.57 M/uL (4.20-5.40); White Blood Count 15.97 K/ul (4.8-10.8)
[2024-09-19 16:38] LABS: Total Protein 4.7 gm/dl (6.0-8.3)
[2024-09-19 16:39] LABS: Albumin Globulin Ratio 1.4 (0.9-2); Albumin Level 2.7 gm/dl (3.4-5.0); BUN Creatinine Ratio 19.9 (10-20); Bilirubin,Total 0.2 mg/dl (0.2-1.0); Calcium 7.7 mg/dl (8.6-10.3); Creatinine Clr Calc Pharmacy 52.6 ml/min
--- NOTE | 2024-09-19 17:39 | Communication Note ---
Date of Service: September 19, 2024 PM labs reviewed. H/H slightly decreased from this AM but I think within reasonable range given qbl, ivf and hydration. WBC also slightly downtrending which would support hydration association. Plt stable/slightly decreased from this AM, would also consider possibly normal variation within the lab. AST/ALT still wnl, Cr is unchanged. VS and I/O not documented yet but in discussion w/ nursing, is normotensive and pulse is normal as well throughout the day. UOP was decreased earlier today but slowly improving. I suspect Cr is more related to patrizia from blood/insensible losses rather than worsening PIH picture. Will check bladder scan to make sure I/O are accurate, otherwise will continue to monitor closely, discuss magnesium if clinical picture changes
[2024-09-19] MEDS ORDERED: KETOROLAC 30 MG/ML VIAL IV PRN (18:12)
[2024-09-19] MEDS: IBUPROFEN 600 MG TAB PO SCH (18:14)
[2024-09-19] MEDS: bisacodyL 5 MG TABEC PO SCH (19:37)
[2024-09-20] MEDS: DIPHTHER/TETAN/PERTUS Vaccine (Tdap, Adol/Adult) 0.5mL IM ONE (01:34)
--- NOTE | 2024-09-20 06:14 | Obstetrical Progress Note ---
Date of Service September 20, 2024 Assessment & Plan (1) state: (2) Post term over 40 weeks: (3) Preeclampsia: Plan Patient is POD#2 from a primary low transverse section. Surgically she is recovering well, incision clean, lochia small, , pumping and supplementing as needed. Feels better than day prior this AM, VSS. Platelets improvin -> 108 this morning. Hbg improvin.0 -> 8.7 Creatinine improvin.41 -> 1.06 Continue care Encourage ambulation and Pain control as needed Plans to stay another day and consider home tomorrow 09/21/[address] Leon in 6wks. Admission and Anticipated Discharge Date Admission Date: September 18, 2024 Supervising Physician Co-Signing Physician Notes Resident Physician Supervision Note: I interviewed and examined the patient. Discussed with Dr. Hanna and agree with findings and plan as documented in the note. Any exceptions or clarifications are listed here: POD2 s/p pLTCS doing well. PM labs were stable yesterday and she began voiding well last evening. Voiding larger amounts and feels like she is emptying when voiding now. Denies PIH s/s. Meeting all pp milestones as well. VSS, exam wnl. Incision c/d/i. H/H, platelets, and cr all stable/improved today. Will continue close monitoring today Documented By: Shahida Lawrence MD Lan Amaya is a 28yo day 2 s/p , preeclampsia with low platelets and BRITTNEY. Feeling well this AM, endorses some sleep overnight. Pain: up to 2/10 lower and upper abdomen, the latter related to gas Ambulation: yes Gas: yes Voiding: BM and urinating well Lochia: small, decreasing Diet: tolerating, appetite improving Feeds: , pumping, supplementing as needed Denies headache, chest pain, SOB, n/v/d, LE pain/swelling, LE numbness/tingling. Review of Systems Review of Systems: Denies fever, body aches, chills, sweats, vision changes, significant vaginal bleeding/discharge. Physical Exam Physical Exam: General: A&Ox3, resting comfortably in bed, in no apparent distress, nontoxic in appearance Skin: warm, dry, intact HEENT: EOM intact, PERRL b/l Cardiovascular: RRR, +s1/s2, no murmurs/rubs/gallops Pulmonary: clear to auscultation b/l, no wheezes/rales/rhonchi GI/Abd: +BS, low-transverse surgical scar healing well with no erythema/warmth/pain/swelling or discharge; uterine fundus firm, about 1 fingerwidth inferior to umbilicus Extremities: no significant swelling or erythema of b/l LE, nontender to palpation, negative Trinity's b/l; warm, no clubbing or cyanosis Neuro: no facial droop, speech intact, moves all extremities on command Results & Data Vital Signs (Past 12 Hours) Vital Signs Temp Pulse Resp BP Pulse Ox O2 Del Method 09/19/24 23:40 36.6 C 78 18 116/75 97 Room Air 09/19/24 19:30 36.4 C L 86 18 108/74 96 Room Air Laboratory Results 09/20/24 09/19/24 09/19/24 Range/Units 06:02 15:53 06:38 WBC 15.21 H 15.97 H 17.55 H (4.8-10.8) K/ul RBC 2.68 L 2.57 L 2.70 L (4.20-5.40) M/uL Hgb 8.7 L 8.0 L 8.7 L (12.0-16.0) g/dl Hct 24.8 L 23.4 L 24.4 L (37.0-47.0) % MCV 92.5 91.1 90.4 (80.0-100.0) fL MCH 32.5 31.1 32.2 (25.0-34.0) pg MCHC 35.1 34.2 35.7 (32.0-36.0) g/dL RDW Std Deviation 43.6 41.8 40.9 (36.4-46.3) fL RDW Coeff of Michele 13.1 12.8 12.6 (11.5-14.5) % Plt Count 108 L 80 L 83 L (130-400) K/uL MPV 11.7 12.3 12.7 H (9.4-12.4) fL Immature Gran % (Auto) 0.5 % Neut % (Auto) 86.7 % Lymph % (Auto) 6.0 % Rice % (Auto) 6.7 % Eos % (Auto) 0.0 % Baso % (Auto) 0.1 % Neut # (Auto) 15.21 H (1.40-6.50) K/uL Lymph # (Auto) 1.06 L (1.20-3.40) K/uL Rice # (Auto) 1.17 H (0.11-0.59) K/uL Eos # (Auto) 0.00 (0.00-0.50) K/uL Baso # (Auto) 0.02 (0.00-0.20) K/uL Immature Gran # (Auto) 0.09 (0.01-0.20) K/uL PT 11.5 (9.0-12.0) Seconds INR 1.1 (0.9-1.1) APTT 29 (21-31) Seconds PTT Ratio 1.1 Fibrinogen 325 (184-400) mg/dl Sodium 139 133 L 133 L (136-145) mmol/L Potassium 3.9 4.0 D 5.6 H D (3.5-5.1) mmol/L Chloride 110 H 105 108 H (98-107) mmol/L Carbon Dioxide 24 22 21 (21-32) mmol/L Anion Gap 5 6 4 (3-11) BUN 27 H 28 H 24 H (6-23) mg/dl Creatinine 1.06 D 1.41 H 1.40 H D (0.6-1.2) mg/dl Est Cr Clr Drug Dosing 70.0 52.6 53.0 ml/min eGFR 73.38 52.11 52.55 BUN/Creatinine Ratio 25.5 H 19.9 17.1 (10-20) Glucose 94 79 91 (70-99(Fasting)) mg/dl Calcium 8.2 L 7.7 L 7.7 L (8.6-10.3) mg/dl Total Bilirubin 0.2 0.2 0.4 (0.2-1.0) mg/dl AST 23 26 28 (13-39) U/L ALT 13 14 15 (7-52) U/L Alkaline Phosphatase 130 H 103 112 H (34-104) U/L Total Protein 5.2 L 4.7 L 4.8 L D (6.0-8.3) gm/dl Albumin 2.8 L 2.7 L 2.7 L (3.4-5.0) gm/dl Globulin 2.4 L 2.0 L 2.1 L (2.5-4.0) gm/dl Albumin/Globulin Ratio 1.2 1.4 1.3 (0.9-2) Resident Activity Tracking Resident Involvement: Resident Care Provided Care Provided: OB Delivery
[2024-09-20 06:27] LABS: Hematocrit (blood only) 24.8 % (37.0-47.0); Hemoglobin 8.7 g/dl (12.0-16.0); Mean Corpuscular Hemoglobin 32.5 pg (25.0-34.0); Mean Corpuscular Hgb Conc 35.1 g/dL (32.0-36.0); Mean Corpuscular Volume 92.5 fL (80.0-100.0); Mean Platelet Volume 11.7 fL (9.4-12.4); Platelet Count 108 K/uL (130-400); RDW Coefficient of Variation 13.1 % (11.5-14.5); RDW Standard Deviation 43.6 fL (36.4-46.3); Red Blood Count 2.68 M/uL (4.20-5.40); White Blood Count 15.21 K/ul (4.8-10.8)
[2024-09-20 06:42] LABS: Albumin Globulin Ratio 1.2 (0.9-2); Albumin Level 2.8 gm/dl (3.4-5.0); BUN Creatinine Ratio 25.5 (10-20); Bilirubin,Total 0.2 mg/dl (0.2-1.0); Calcium 8.2 mg/dl (8.6-10.3); Globulin 2.4 gm/dl (2.5-4.0); Potassium 3.9 mmol/L (3.5-5.1); Total Protein 5.2 gm/dl (6.0-8.3)
[2024-09-20] MEDS ORDERED: bisacodyL 10 MG SUPP PR PRN (18:12)
[2024-09-20] MEDS: IBUPROFEN 600 MG TAB PO PRN (20:16)
[2024-09-21] MEDS: ACETAMINOPHEN 325 MG TAB PO PRN (00:26)
[2024-09-21 00:53] VITALS: RESP 16
--- NOTE | 2024-09-21 06:27 | Obstetrical Progress Note ---
Date of Service September 21, 2024 Assessment & Plan (1) state: (2) Post term over 40 weeks: (3) Preeclampsia: Plan Patient is POD#3 from a primary low transverse section. Surgically she is recovering well, incision clean, lochia small, , pumping and supplementing as needed. Continues to feel better than day prior this AM. Platelets improvin -> 108 -> 129 Hb.0 -> 8.7 -> 7.9, asymptomatic Creatinine improvin.41 -> 1.06 -> 0.82 Continue care. Encourage ambulation and . Pain control as needed. Wants to go home today. Followup in office for BP check on Monday 09/24 or Tuesday 09/25. Followup with Dr. Leon in 6wks. Admission and Anticipated Discharge Date Admission Date: September 18, 2024 Supervising Physician Co-Signing Physician Notes Resident Physician Supervision Note: I interviewed and examined the patient. Discussed with Dr. Catalan and agree with findings and plan as documented in the note. Any exceptions or clarifications are listed here: Doing well pod#3. No s/s of pet. Some borderline mild elevated blood pressures. No indication for treatment at present. Meeting criteria for d/c. Plan f/u in the office on Tue or for bp check. s/s of pet reviewed. Documented By: Hue Dejesus MD, FACOG Subjective Monique is a 28yo day 3 s/p for preeclampsia. Feeling well this AM, endorses some sleep overnight. Pain: improving Ambulation: yes Gas: yes Voiding: BM and urinating well Lochia: small, continues to decrease Diet: tolerating Feeds: currently just pumping and supplementing as needed, plans to retry when her milk comes in more Denies headache, chest pain, SOB, n/v/d, LE pain/swelling, LE numbness/tingling. Review of Systems Review of Systems: Denies fever, body aches, chills, sweats, vision changes, significant vaginal bleeding/discharge. Physical Exam Physical Exam: General: A&Ox3, resting comfortably in bed, in no apparent distress, nontoxic in appearance Skin: warm, dry, intact HEENT: EOM intact, PERRL b/l Cardiovascular: RRR, +s1/s2, no murmurs/rubs/gallops Pulmonary: clear to auscultation b/l, no wheezes/rales/rhonchi GI/Abd: +BS, low-transverse surgical scar healing well with no erythem a/warmth/pain/swelling or discharge; uterine fundus firm, about 1 fingerwidth inferior to umbilicus Extremities: no significant swelling or erythema of b/l LE, nontender to palpation, negative Trinity's b/l; warm, no clubbing or cyanosis Neuro: no facial droop, speech intact, moves all extremities on command Results & Data Vital Signs (Past 12 Hours) Vital Signs Temp Pulse Resp BP Pulse Ox O2 Del Method 09/21/24 00:30 36.4 C L 78 16 144/91 H 99 Room Air 09/20/24 20:30 36.5 C 85 18 131/84 99 Room Air Laboratory Results Abnormal lab results 09/18/24 09/21/24 Range/Units 04:21 06:02 WBC 12.98 H (4.8-10.8) K/ul RBC 2.46 L (4.20-5.40) M/uL Hgb 7.9 L (12.0-16.0) g/dl Hct 22.9 L (37.0-47.0) % Plt Count 129 L (130-400) K/uL Chloride 112 H (98-107) mmol/L BUN 24 H (6-23) mg/dl BUN/Creatinine Ratio 29.3 H (10-20) Calcium 8.4 L (8.6-10.3) mg/dl Alkaline Phosphatase 144 H (34-104) U/L Total Protein 5.3 L (6.0-8.3) gm/dl Albumin 2.8 L (3.4-5.0) gm/dl Crossmatch See Detail Resident Activity Tracking Resident Involvement: Resident Care Provided Care Provided: OB Delivery
[2024-09-21 06:35] LABS: Hematocrit (blood only) 22.9 % (37.0-47.0); Hemoglobin 7.9 g/dl (12.0-16.0); Mean Corpuscular Hemoglobin 32.1 pg (25.0-34.0); Mean Corpuscular Hgb Conc 34.5 g/dL (32.0-36.0); Mean Corpuscular Volume 93.1 fL (80.0-100.0); Mean Platelet Volume 11.3 fL (9.4-12.4); Platelet Count 129 K/uL (130-400); RDW Coefficient of Variation 13.2 % (11.5-14.5); RDW Standard Deviation 44.9 fL (36.4-46.3); Red Blood Count 2.46 M/uL (4.20-5.40); White Blood Count 12.98 K/ul (4.8-10.8)
[2024-09-21 06:48] LABS: Albumin Globulin Ratio 1.1 (0.9-2); Albumin Level 2.8 gm/dl (3.4-5.0); BUN Creatinine Ratio 29.3 (10-20); Bilirubin,Total 0.2 mg/dl (0.2-1.0); Calcium 8.4 mg/dl (8.6-10.3); Creatinine Clr Calc Pharmacy 90.5 ml/min; Globulin 2.5 gm/dl (2.5-4.0); Potassium 4.4 mmol/L (3.5-5.1); Total Protein 5.3 gm/dl (6.0-8.3)
[2024-09-21 07:30] VITALS: BP 133/91; TEMP 97.9; O2SAT 98
[2024-09-21 09:21] VITALS: PULSE 78
--- NOTE | 2024-09-24 10:37 | Discharge Summary ---
Date of Service September 24, 2024 Admission HPI Per Admitting Provider 28yo at 40+wks ronnie presents to with cc of leaking fluid and contractions. Pt called early am on 09/18 noting ? pink fluid with some irregular ctx. Put pad on and recalled after one hour and told to come in for evaluation due to pad being 75% saturated. At that time also with irregular ctx. On arrival here notably grossly ruptured. Contractions q2-4 and cx exam 2cm. BPs elevated x 2. No matta or visual change. No ruq pain. No swelling. +FM. No vb. Clear fluid-- of note pt states first started leaking at 1900 on 09/17. PNC uncomplicated. PNL rh pos, ri, gbs neg OBH: g1 GYNH: nl paps no stds. Discharge Data Consultations 09/18/24 04:00 Consult Anesthesiology Stat Procedures Performed Operation Date: 09/18/24 16:50 Actual Procedures p Section in OR for live female infant @ 3176(Not Applicable) - Malika Leon MD Hospital Course (1) state: (2) Post term over 40 weeks: (3) Preeclampsia: Plan Patient is POD#3 from a primary low transverse section. Surgically she is recovering well, incision clean, lochia small, , pumping and supplementing as needed. Continues to feel better than day prior this AM. Platelets improvin -> 108 -> 129 Hb.0 -> 8.7 -> 7.9, asymptomatic Creatinine improvin.41 -> 1.06 -> 0.82 Continue care. Encourage ambulation and . Pain control as needed. Wants to go home today. Followup in office for BP check on Monday 09/24 or Tuesday 09/25. Followup with Dr. Leon in 6wks. Supervising Physician Co-Signing Physician Notes Resident Physician Supervision Note: I interviewed and examined the patient. Discussed with Dr. Catalan and agree with findings and plan as documented in the note. Any exceptions or clarifications are listed here: Doing well pod#3. No s/s of pet. Some borderline mild elevated blood pressures. No indication for treatment at present. Meeting criteria for d/c. Plan f/u in the office on Tue or for bp check. s/s of pet reviewed. Documented By: Hue Dejesus MD, FACOG Coding Level of Care Code None Diagnoses state Z39.2 Post term over 40 weeks O48.0 Preeclampsia O14.90
== END 2024-09-21 11:15 | disposition home or self-care (01) | DRG 788 ==
LOC: OPB 03:04 → 4S1 03:07 → 4E2 21:23
DX: O42.02 Full-term premature rupture of membranes, onset of labor within 24 hours of rupture; O14.94 Unspecified pre-eclampsia, complicating childbirth; O48.0 Post-term pregnancy; O14.24 HELLP syndrome, complicating childbirth; Z37.0 Single live birth; Z3A.40 40 weeks gestation of pregnancy; O65.4 Obstructed labor due to fetopelvic disproportion, unspecified